=== PATIENT | male | born 1970 | race Caucasian/White ===

== ENCOUNTER 2016-10-10 20:23 | Emergency (ER) | payer BC | END 2016-10-10 23:02 | disposition home or self-care (01) | LOC: ER 20:23 | DX: K57.32 Diverticulitis of large intestine without perforation or abscess without bleeding (principal); I10 Essential (primary) hypertension; E11.9 Type 2 diabetes mellitus without complications; Z79.4 Long term (current) use of insulin; Z98.890 Other specified postprocedural states; Z87.442 Personal history of urinary calculi | CPT/HCPCS: 36415; Q9967 ==